=== PATIENT | female | born 1985 | race Caucasian/White ===

== ENCOUNTER 2024-07-03 16:58 | Emergency (ER) | payer OTHER ==
--- NOTE | 2024-07-03 18:41 | RAD REPORT ---
EXAMINATION: XR RIGHT ANKLE CLINICAL INDICATION: . PAIN TECHNIQUE:Two view radiograph of the right ankle were obtained. COMPARISON: No prior exam. FINDINGS: No bone or joint abnormality detected. 2 screws are seen in the first metatarsal.
--- NOTE | 2024-07-03 19:16 | EDPHYS ---
Physician Documentation [facility] Name: Emily Felix Age: 38 yrs Sex: Female : 1985 Arrival Date: 07/03/2024 Time: 16:58 Bed IW1 Private MD: ED Physician Eldon Ngo HPI: 07/03 18:10 This 38 yrs old Female presents to ER via Ambulatory with complaints of Ankle Injury. cp 18:10 The patient presents with an injury, pain, that is acute. cp Historical: - Allergies: 18:27 No Known Allergies; ss - Home Meds: 18:27 None [Active]; ss - Immunization history:: Adult Immunizations up to date. - Infectious Disease History:: Denies. - Social history:: Smoking status: Patient denies any tobacco usage or history of. ROS: 18:15 MS/extremity: Positive for pain, of the right ankle, Negative for decreased range of cp motion, deformity, 18:15 Constitutional: Negative for fever, chills, and weight loss, cp 18:15 Neck: Negative for pain with movement, pain at rest, 18:15 Back: Negative for pain at rest, pain with movement, 18:15 All other systems are negative, Exam: 18:20 Constitutional: The patient appears in no acute distress, alert, awake, well developed, cp well nourished, uncomfortable, 18:20 Head/Face: Normocephalic, atraumatic. cp 18:20 Neck: ROM/movement: is normal, is supple, without pain, no range of motions limitations, 18:20 Back: pain, is absent, ROM is normal, 18:20 Musculoskeletal/extremity: Extremities: grossly normal except: noted in the right ankle: pain, tenderness medial and lateral side of ankle, Achilles tendon palpated and intact, no proximal fibula tenderness on exam, no tenderness at base of right fifth metatarsal noted, Vital Signs: 18:26 BP 120 / 82; Pulse 85; Resp 16; Temp 98(TE); Pulse Ox 100% on R/A; Weight 55.34 kg; ss Height 5 ft. 3 in. ; Pain 8/10; 19:52 BP 117 / 84; Pulse 81; Resp 17 S; Temp 98.2(TE); Pulse Ox 100% ; lg3 18:26 Body Mass Index 21.61 (55.34 kg, 160.02 cm) 18:26 Pain Scale: Adult ss MDM: 17:59 Medical Screening Exam initiated cp 19:15 Data reviewed: vital signs, nurses notes, radiologic studies, plain films, and as a cp result, I will discharge patient. 19:15 Differential diagnosis: fracture, sprain, dislocation, Achilles tendon rupture, foot cp fracture. I considered the following discharge prescriptions or medication management in the emergency department Medications were administered in the Emergency Department. See MAR. Independent interpretation of the following test(s) in the Emergency Department X-Ray: My interpretation is images of right ankle negative for fracture. Counseling: I had a detailed discussion with the patient and/or guardian regarding the historical points, exam findings, and any diagnostic results supporting the discharge/admit diagnosis, radiology results, to return to the emergency department if symptoms worsen or persist or if there are any questions or concerns that arise at home. Response to treatment: the patient's symptoms have mildly improved after treatment, and as a result, I will discharge patient. 07/03 18:03 Order name: XRAY Ankle RIGHT 3 view; Complete Time: 18:56 cp 07/03 18:57 Order name: Aircast Ankle Splint; Complete Time: 19:56 cp Administered Medications: 18:28 Not Given (pt states she took ibuprofen prior to arrival.): [id number] mg PO once ss Disposition Summary: 07/03/24 19:16 Discharge Ordered Notes: Location: Home cp Problem: new cp Symptoms: have improved cp Condition: Stable cp Diagnosis - Sprain of ankle - right cp Followup: cp - With: Herrera Valdez MD - When: 5 - 6 days - Reason: Worsening of condition Discharge Instructions: - Discharge Summary Sheet cp - Ankle Sprain cp - RICE Therapy for Routine Care of Injuries cp Forms: - Medication Reconciliation Form cp - Antibiotic Education cp - Prescription Opioid Use cp - Patient Portal Instructions cp - Leadership Thank You Letter cp Signatures: Dispatcher [employer] Cyndy Eduardo RN RN Eldon Melchor PA PA cp Able, Lacie RN RN lg3 Corrections: (The following items were deleted from the chart) 18:03 18:03 Ankle Right 3 View+RAD.RAD.BRZ ordered. EDAR EDMS 19:56 18:57 Crutches ordered. cp lg3
--- NOTE | 2024-07-03 19:16 | ER ---
Nurse's Notes [facility] Name: Emily Felix Age: 38 yrs Sex: Female : 1985 Arrival Date: 07/03/2024 Time: 16:58 Bed IW1 Private MD: Diagnosis: Sprain of ankle-right Presentation: 07/03 18:26 Chief complaint: Patient states: R ankle pain that began after rolling ankle at 1400. ss Coronavirus screen: Client denies travel out of the [place] in the last 14 days. Ebola Screen: Patient denies exposure to infectious person. Patient denies travel to an Ebola-affected area in the 21 days before illness onset. Initial Sepsis Screen: Does the patient meet any 2 criteria? No. Patient's initial sepsis screen is negative. Does the patient have a suspected source of infection? No. Patient's initial sepsis screen is negative. Risk Assessment: Do you want to hurt yourself or someone else? Patient reports no desire to harm self or others. Onset of symptoms was July 03, 2024. 18:26 Method Of Arrival: Ambulatory ss 18:26 Acuity: MIKE 4 ss Historical: - Allergies: 18:27 No Known Allergies; ss - Home Meds: 18:27 None [Active]; ss - Immunization history:: Adult Immunizations up to date. - Infectious Disease History:: Denies. - Social history:: Smoking status: Patient denies any tobacco usage or history of. Screenin:52 [facility] ED Fall Risk Assessment (Adult) History of falling in the last 3 months, lg3 including since admission Yes- single mechanical fall (1 pt) Confusion or Disorientation No (0 pts) Intoxicated or Sedated No (0 pts) Impaired Gait No (0 pts) Mobility Assist Device Used No (0 pt) Altered Elimination No (0 pt) Score/Fall Risk Level 0 - 2 = Low Risk Oriented to surroundings, Maintained a safe environment, Educated pt \T\ family on fall prevention, incl call for assistance when getting out of bed, Assessed \T\ reinforced patient's understanding of fall precautions. Abuse screen: Denies threats or abuse. Denies injuries from another. Nutritional screening: No deficits noted. Tuberculosis screening: No symptoms or risk factors identified. Assessment: 19:52 General: Appears in no apparent distress. comfortable, Behavior is calm, cooperative. lg3 Pain: Complains of pain in right ankle Pain does not radiate. Pain currently is 5 out of 10 on a pain scale. Neuro: No deficits noted. Miles Agitation-Sedation Scale (RASS): 0 - Alert and Calm Level of Consciousness is awake, alert, obeys commands, Oriented to person, place, time, situation. Cardiovascular: No deficits noted. Denies chest pain, shortness of breath, Capillary refill < 3 seconds Clubbing of nail beds is absent JVD is absent Patient's skin is warm and dry. Respiratory: No deficits noted. Airway is patent Respiratory effort is even, unlabored, Respiratory pattern is regular, symmetrical. GI: No deficits noted. No signs and/or symptoms were reported involving the gastrointestinal system. : No signs and/or symptoms were reported regarding the genitourinary system. EENT: No deficits noted. No signs and/or symptoms were reported regarding the EENT system. Derm: No deficits noted. Skin is intact, is healthy with good turgor, Skin is dry, Skin is normal, Skin temperature is warm. Musculoskeletal: Circulation, motion, and sensation intact. Range of motion: intact in all extremities, Reports pain in right ankle. Vital Signs: 18:26 BP 120 / 82; Pulse 85; Resp 16; Temp 98(TE); Pulse Ox 100% on R/A; Weight 55.34 kg; ss Height 5 ft. 3 in. ; Pain 8/10; 19:52 BP 117 / 84; Pulse 81; Resp 17 S; Temp 98.2(TE); Pulse Ox 100% ; lg3 18:26 Body Mass Index 21.61 (55.34 kg, 160.02 cm) ss 18:26 Pain Scale: Adult ss ED Course: 17:02 Patient arrived in ED. mr 17:11 Eldon Bertrand PA is PHCP. cp 17:11 Eldon Ngo MD is Attending Physician. cp 18:27 Triage completed. ss 18:27 Arm band placed on right wrist. ss 18:31 XRAY Ankle RIGHT 3 view In Process Unspecified. EDMS 19:15 Herrera Valdez MD is Referral Physician. cp 19:37 Charles wrap to right ankle Air stirrup applied to right ankle. kmf 19:52 Patient has correct armband on for positive identification. lg3 19:52 No provider procedures requiring assistance completed. Patient did not have IV access lg3 during this emergency room visit. Administered Medications: 18:28 Not Given (pt states she took ibuprofen prior to arrival.): [id number] mg PO once ss Medication: 19:52 VIS not applicable for this client. lg3 Outcome: 19:16 Discharge ordered by . concetta 19:52 Discharged to home via ambulance, with family, lg3 19:52 Condition: stable 19:52 Discharge instructions given to patient, Instructed on discharge instructions, follow up and referral plans. Demonstrated understanding of instructions, follow-up care, splint care, 19:56 Patient left the ED. lg3 Signatures: Dispatcher [employer] EDMS Coral Lloyd, Reg Reg mr Cyndy Orozco, RN RN ss Eldon Bertrand PA PA cp Able, Lacie, RN RN lg3 [facility]
[2024-07-03 22:32] VITALS: O2SAT 100
[2024-07-03 22:33] VITALS: BP 117/84; TEMP 98.2
== END 2024-07-03 19:56 | disposition home or self-care (01) ==
LOC: ER 16:58
DX: S93.401A Sprain of unspecified ligament of right ankle, initial encounter (principal)
CPT/HCPCS: 99283